=== PATIENT | female | born 1985 | race Caucasian/White ===

== ENCOUNTER 2016-10-07 13:00 | Outpatient (CLI) | payer BC, MEDICAID ==
[~2016-10-07] VITALS: Ht 154.9 cm; Wt 78.9 kg
== END 2016-10-07 15:10 | disposition home or self-care (01) ==
LOC: 2LDRP 13:00 → BC 13:00
DX: O99.89 Other specified diseases and conditions complicating pregnancy, childbirth and the puerperium (principal); R11.0 Nausea; Z3A.28 28 weeks gestation of pregnancy

== ENCOUNTER 2017-01-16 22:53 | Emergency (ER) | payer BC, MEDICAID ==
--- NOTE | 2017-01-19 12:29 | ER ---
ADMIT: 01/16/2017 RM/LOC: ER [facility] MR#: [id number] [id number] MUNDO CARRILLO [address] [facility] [place] [address] Emergency Room Report SEX: F AGE: 31 : 1985 DATE: 01/16/2017 ADDENDUM: Please see my T-sheet for complete review of systems, past medical history, and physical exam. CHIEF COMPLAINT: Swollen feet. HISTORY OF PRESENT ILLNESS: A 31-year-old female, status post on the 14 of December, reports to the ER complaining of bilateral feet swelling for the past day. Reports she had an unremarkable performed on the 14 of December with no complications. Delivered a healthy baby. Was discharged yesterday. Returned home this morning. Has otherwise been feeling well. Has noticed some increased swelling bilaterally in her lower legs with some pain about her dorsal right foot and her toes. Denies any fever, chills, nausea, vomiting, loss of appetite, chest pain, difficulty breathing. Denies any calf pain or pain in the calf with movement. States she has not been watching her diet, has been consuming high sodium content foods. States she has been elevating her legs somewhat. Does smoke a pack per day. No history of DVT or PE. COURSE IN THE EMERGENCY ROOM: GENERAL: The patient was seen and examined. She is afebrile and nontoxic. No acute distress. HEENT: Head is normocephalic and atraumatic. NECK: Soft and supple. LUNGS: No respiratory distress. No wheezes, rhonchi, or rales. Breath sounds normal. No pleuritic chest pain. CVS: Heart is regular rate and rhythm. Heart sounds normal. No murmurs, gallops, or rubs. ABDOMEN: Soft. Her incision is healing unremarkably. No erythema or discharge, closed with sophia at this time. She is to have these removed tomorrow by Home Health nurse. SKIN: Warm and dry. EXTREMITIES: Swollen bilaterally. No pitting edema. She does have some tenderness to palpation in the distal right toes and top of the foot. She has no calf tenderness to palpation in either leg. No pain with passive range of motion of the lower extremity. Bilateral lower legs are equal in size, no one greater than the other. She just complains of pain primarily in the right foot and toes, right greater than left. NEURO: She is alert and oriented. IMPRESSION: ADMIT: 01/16/2017 RM/LOC: ER [facility] MR#: [id number] [id number] MUNDO CARRILLO [facility] [place] [address] Emergency Room Report SEX: F AGE: 31 : 1985 1. Lower leg edema. 2. Status post section. DISPOSITION: The patient was discharged to elevate her legs when she is not active. Compression socks [id number] during the day, okay to remove at night. Avoid salty foods. Follow up with OB as scheduled. Activity as tolerated. Continue home medications. Return with worsening signs or symptoms. Follow up with Dr. Ortiz. I did educate her on signs and symptoms of acute DVT and PE. I told her to return with any of these signs or symptoms. She expressed understanding with this plan. Tylenol as needed for pain. Questions sought and answered to the best of my ability and to the patient's satisfaction. Discharged in stable condition. TINA Juarez / Deshaun Tidwell MD / yola JOB #: [id number] CC: Deshaun Tidwell MD, Attending Physician Konstantin Ortiz MD, Family Physician
== END 2017-01-17 00:33 | disposition home or self-care (01) ==
LOC: ER 22:53
DX: R60.0 Localized edema (principal); Z98.890 Other specified postprocedural states; Z90.49 Acquired absence of other specified parts of digestive tract